=== PATIENT | male | born 1955 | race Two or more races ===

== ENCOUNTER 2020-05-31 15:33 | Emergency (ER) | payer MEDICARE, OTHER ==
[~2020-05-31] VITALS: Ht 175.3 cm; Wt 86.4 kg
[~2020-05-31 15:33] MED LIST: BENZ1TAB70 PO; QUET200T PO; RISP3TAB14 PO
[2020-05-31 16:01] VITALS: BP 140/81
== END 2020-05-31 20:53 | disposition left against medical advice (07) ==
LOC: EMS 15:33
DX: K46.9 Unspecified abdominal hernia without obstruction or gangrene (principal); Z53.21 Procedure and treatment not carried out due to patient leaving prior to being seen by health care provider

== ENCOUNTER 2020-06-01 08:29 | Emergency (ER) | payer MEDICARE, OTHER ==
[~2020-06-01] VITALS: Ht 180.3 cm; Wt 72.7 kg
[2020-06-01 10:51] VITALS: BP 138/75
== END 2020-06-01 11:30 | disposition home or self-care (01) ==
LOC: EMS 08:35
DX: F20.9 Schizophrenia, unspecified (principal); K40.90 Unilateral inguinal hernia, without obstruction or gangrene, not specified as recurrent; F17.210 Nicotine dependence, cigarettes, uncomplicated
CPT/HCPCS: Z7502

== ENCOUNTER 2020-06-10 12:58 | Emergency (ER) | payer MEDICARE, OTHER ==
[~2020-06-10] VITALS: Ht 172.7 cm; Wt 77.3 kg
[2020-06-10 14:23] LABS: AMPHET/METH SCREEN,URINE NEGATIVE (NEGATIVE); BARBITURATE SCREEN, URINE NEGATIVE (NEGATIVE); BENZODIAZEPINES SCREEN,URINE NEGATIVE (NEGATIVE); CANNABINOID SCREEN,URINE NEGATIVE (NEGATIVE); COCAINE SCREEN,URINE NEGATIVE (NEGATIVE); METHADONE SCREEN, URINE NEGATIVE (NEGATIVE); OPIATE SCREEN,URINE NEGATIVE (NEGATIVE)
[2020-06-10 14:39] LABS: PHENCYCLIDINE SCREEN,URINE NEGATIVE (NEGATIVE)
[2020-06-10 15:30] VITALS: BP 111/73
== END 2020-06-10 15:43 | disposition home or self-care (01) ==
LOC: EMS 13:02
DX: R45.851 Suicidal ideations (principal); F20.9 Schizophrenia, unspecified; F17.210 Nicotine dependence, cigarettes, uncomplicated

== ENCOUNTER 2020-06-11 10:59 | Emergency (ER) | payer MEDICARE, OTHER ==
[~2020-06-11] VITALS: Ht 172.7 cm; Wt 77.3 kg
[2020-06-11 14:59] VITALS: BP 129/80
== END 2020-06-11 15:56 | disposition home or self-care (01) ==
LOC: EMS 11:06
DX: F20.9 Schizophrenia, unspecified (principal); F17.210 Nicotine dependence, cigarettes, uncomplicated; Z79.899 Other long term (current) drug therapy
CPT/HCPCS: Z7502

== ENCOUNTER 2023-08-30 12:39 | Emergency (ER) | payer MEDICARE, OTHER ==
[~2023-08-30 12:39] MED LIST changes: -RISP3TAB14 PO; +RISP3TAB35 PO
== END 2023-08-30 12:49 | disposition left against medical advice (07) ==
LOC: EMS 12:39
DX: Z53.21 Procedure and treatment not carried out due to patient leaving prior to being seen by health care provider (principal)